=== PATIENT | female | born 1965 | race Caucasian/White ===

== ENCOUNTER → 2019-08-12 | Outpatient (CLI) | payer MEDICAID ==
[2019-08-12 16:43] LABS: HEMATOCRIT 38.3 % (36.0-47.0); HEMOGLOBIN 13.3 g/dL (12.0-15.5); RED BLOOD COUNT 4.24 x10^6/uL (3.50-5.40); RED CELL DISTRIBUTION WIDTH 12.5 % (11.5-14.5); WHITE BLOOD COUNT 5.7 x10^3/uL (4.0-11.0)
[2019-08-14 16:10] LABS: ANA INTERP Negative (.)
[2019-08-14 17:10] LABS: ALBUM 4.2 g/dL (2.9-4.4); ALPHA 1 0.2 g/dL (0.0-0.4); ALPHA 2 0.8 g/dL (0.4-1.0); BETA 0.8 g/dL (0.7-1.3); GAMMA 1.1 g/dL (0.4-1.8); PROTEIN TOTAL 7.2 g/dL (6.0-8.5); SPEP AG RATIO 1.4 (0.7-1.7)
== END | disposition home or self-care (01) ==
LOC: LAB 16:22
PROVIDERS: ATTEND Psychiatry & Neurology Neurology with Special Qualifications in Child Neurology
DX: G47.10 Hypersomnia, unspecified (principal); M25.50 Pain in unspecified joint; G89.29 Other chronic pain; M54.9 Dorsalgia, unspecified; M25.40 Effusion, unspecified joint; R20.0 Anesthesia of skin; R20.2 Paresthesia of skin
CPT/HCPCS: 36415; 82607; 82746; 84165; 84443; 85027; 86038; 86141